=== PATIENT | female | born 1990 | race Caucasian/White ===

== ENCOUNTER 2022-08-05 10:56 | Emergency (ER) | payer OTHER ==
[~2022-08-05] VITALS: Ht 154.9 cm; Wt 119.8 kg
[2022-08-05 11:29] VITALS: BP 146/76
[2022-08-05] MEDS ORDERED: AMOCLA875 PO (12:17)
== END 2022-08-05 12:25 | disposition home or self-care (01) ==
LOC: ER 10:56
DX: N61.1 Abscess of the breast and nipple (principal); Z91.048 Other nonmedicinal substance allergy status
CPT/HCPCS: 19020; 99282-25